=== PATIENT | female | born 1995 | race Hispanic/Latino ===

== ENCOUNTER 2017-05-09 09:17 | Emergency (ER) | payer OTHER ==
[2017-05-09 10:13] VITALS: RESP 16; BMI 18.3
[2017-05-09] MEDS ORDERED: Sodium Chloride 0.9% 1,000 ML IV STA (10:13)
--- NOTE | 2017-05-09 10:16 | ED PDOC ---
HPI: General Adult Time Seen by Provider: 05/09/17 09:49 Chief Complaint (Provider): Lower abd pain History Per: Patient History/Exam Limitations: no limitations Onset/Duration Of Symptoms: Days (Today) Have you had recent travel within the past 21 days to any of the following countries: [place], [place], [place] or [place]?: No Current Symptoms Are (Timing): Still Present Additional Complaint(s): Pt. with pain across lower abd pand lower back. No dysuria, vaginal dc, weakness, chest pain, dyspnea, diarrhea. Nausea, no vomit. No fever, cough. No new food or drinks. Has IUD and no period for 2 years. Past Medical History Reviewed: Nursing Documentation, Vital Signs Vital Signs: Last Vital Signs Temp 98.6 F 05/09/17 14:44 Pulse 83 05/09/17 14:44 Resp 16 05/09/17 14:44 BP 108/63 05/09/17 14:44 Pulse Ox 99 05/09/17 14:44 - Medical History PMH: No Chronic Diseases - Surgical History Surgical History: No Surg Hx - Family History Family History: States: Unknown Family Hx - Social History Current smoker - smoking cessation education provided: No Alcohol: None Drugs: Denies - Allergies Allergies/Adverse Reactions: Allergies Allergy/AdvReac Type Severity Reaction Status Date / Time esomeprazole [From Nexium] Allergy Verified 05/09/17 10:12 Review of Systems ROS Statement: Except As Marked, All Systems Reviewed And Found Negative Gastrointestinal: Positive for: Nausea, Abdominal Pain Musculoskeletal: Positive for: Back Pain Physical Exam - Reviewed Nursing Documentation Reviewed: Yes Vital Signs Reviewed: Yes - Physical Exam Appears: Positive for: Non-toxic, No Acute Distress Head Exam: Positive for: ATRAUMATIC, NORMAL INSPECTION, NORMOCEPHALIC Skin: Positive for: Normal Color, Warm, DRY Eye Exam: Positive for: EOMI, Normal appearance, PERRL ENT: Positive for: Normal ENT Inspection Neck: Positive for: Normal, Painless ROM Cardiovascular/Chest: Positive for: Regular Rate, Rhythm Respiratory: Positive for: CNT, Normal Breath Sounds Gastrointestinal/Abdominal: Positive for: Bowel Sounds, Soft, Tenderness ( across lower) Back: Positive for: Normal Inspection. Negative for: L CVA Tenderness, R CVA Tenderness Extremity: Positive for: Normal ROM. Negative for: Tenderness, Pedal Edema Neurologic/Psych: Positive for: Alert, Oriented - Laboratory Results Result Diagrams: 05/09/17 11:13 05/09/17 11:13 Interpretation Of Abn Labs: no acute Urine POC: Negative Urine dip results: Negative for: Leukocyte Esterase, Nitrate - ECG O2 Sat by Pulse Oximetry: 98 Pulse Ox Interpretation: Normal - CT Scan/US ct Other Rad Studies (CT/US): Read By Radiologist Other Rad Interpretation: large cyst us Other Rad Studies (CT/US): Read By Radiologist Other Rad Interpretation: Large 4.2 centimeter right ovarian hemorrhagic cyst. - Progress ED Course And Treament: 1334: Stable. AAOx3. US as pt. has ovarian cyst. 1526: Stable. Pain free. Tolerated PO. Fu with pcp. Disposition - Clinical Impression Clinical Impression: Abdominal pain, Hemorrhagic cyst - Patient ED Disposition Is Patient to be Admitted: No Counseled Patient/Family Regarding: Studies Performed, Diagnosis, Need For Followup - Disposition [facility]errals: [facility] Disposition: Routine/Home Disposition Time: 15:27 Condition: STABLE Additional Instructions: Return if not better in 3 days. Instructions: Acute Abdominal Pain (ED), Ovarian Cyst (ED) Forms: [employer] (Kazakh)
[2017-05-09] MEDS ORDERED: Iohexol 240 (50 ml) PO ONE (11:08)
[2017-05-09] MEDS ORDERED: Iohexol 240 (50 ml) ONE (11:12)
[2017-05-09 11:18] LABS: BASO % 0.6 % (0.0-2.0); EOS # 0.3 K/uL (0.0-0.7); EOS % 5.4 % (0.0-4.0); HEMATOCRIT 40.6 % (34.0-47.0); LYMPH # 1.5 K/uL (1.0-4.3); MEAN CELL VOLUME 92.7 fl (81.0-99.0); MEAN CORPUSCULAR HEMOGLOBIN 31.2 pg (27.0-31.0); MEAN CORPUSCULAR HGB CONC 33.7 g/dL (33.0-37.0); MEAN PLATELET VOLUME 8.5 fl (7.2-11.7); MONO # 0.3 K/uL (0.0-0.8); MONO % 6.3 % (0.0-10.0); NEUT # 3.2 K/uL (1.8-7.0); NEUT % 59.7 % (50.0-75.0); NRBC % 0.1 % (0.0-0.0); RED CELL DISTRIBUTION WIDTH 12.9 % (11.5-14.5); WHITE BLOOD COUNT 5.4 K/uL (4.8-10.8)
[2017-05-09 11:28] LABS: ALB/GLOB RATIO 1.4 (1.0-2.1); ALKALINE PHOSPHATASE 68 U/L (38-126); ALT/SGPT 25 U/L (9-52); AST/SGOT 19 U/L (14-36); BILIRUBIN,TOTAL 0.5 mg/dl (0.2-1.3); BLOOD UREA NITROGEN 13 mg/dl (7-17); CALCIUM 9.3 mg/dL (8.4-10.2); CARBON DIOXIDE 25 mmol/L (22-30); CHLORIDE 105 mmol/L (98-107); GFR AFRICAN-AMERICAN > 60; GLUCOSE,RANDOM 89 mg/dL (65-105); POTASSIUM 4.3 MMOL/L (3.6-5.0); SODIUM 141 mmol/l (132-148); TOTAL PROTEIN 7.9 G/DL (6.3-8.2)
[2017-05-09] MEDS ORDERED: Iohexol 300 100 ML IJ ONE (12:57)
[2017-05-09] MEDS ORDERED: Sodium Chloride 0.9% 50 ML IV ONE (12:58)
--- NOTE | 2017-05-09 13:35 | CT ---
PROCEDURE: CT Abdomen and Pelvis with contrast HISTORY: abd pain COMPARISON: None. TECHNIQUE: Contrast dose: 95 mL Omnipaque 300 Radiation dose: Total exam DLP = 267.7 mGy-cm. This CT exam was performed using one or more of the following dose reduction techniques: Automated exposure control, adjustment of the mA and/or kV according to patient size, and/or use of iterative reconstruction technique. FINDINGS: LOWER THORAX: Heart normal in size. Lung bases clear. No pleural or pericardial effusion. Peripheral right lower lobe 3 millimeter nodule (series 3, image 3). Peripheral right lower lobe 4 millimeter nodule (series 3, image 12). LIVER: Unremarkable. No gross lesion or ductal dilatation. GALLBLADDER AND BILE DUCTS: Unremarkable. PANCREAS: Unremarkable. No gross lesion or ductal dilatation. SPLEEN: Unremarkable. ADRENALS: Unremarkable. No mass. KIDNEYS AND URETERS: Unremarkable. No hydronephrosis. No solid mass. VASCULATURE: Unremarkable. No aortic aneurysm. BOWEL: Unremarkable. No obstruction. No gross mural thickening. APPENDIX: Normal appendix. PERITONEUM: Unremarkable. No free fluid. No free air. LYMPH NODES: Unremarkable. No enlarged lymph nodes. BLADDER: Unremarkable. REPRODUCTIVE: Intrauterine device. Large right ovarian cyst measuring 4.2 x 2.9 centimeter (series 3, image 137). Dominant left ovarian follicle measuring 2.2 x 1.7 centimeter (series 3, image 133). Free fluid in the pelvis. BONES: No acute fracture. OTHER FINDINGS: None. IMPRESSION: Large right ovarian cyst measuring up to 4.2 cm with surrounding free fluid. Pelvic ultrasound can be obtained for further evaluation as clinically warranted. Findings conveyed to Dr. Che by Dr. Ramachandran at 1:30 p.m. on 05/09/2017.
[2017-05-09 14:45] VITALS: BP 108/63; PULSE 83; TEMP 98.6
--- NOTE | 2017-05-09 14:49 | US ---
HISTORY: pain COMPARISON: Correlation is made to CT scan of the abdomen and pelvis performed earlier the same day. TECHNIQUE: Grayscale, color Doppler and spectral doppler evaluation of the pelvis, performed transvaginally. FINDINGS: UTERUS: Measures 7.4 x 2.8 x 3.6 cm. Anteverted. Normal in size and appearance. No fibroid or other mass lesion seen. ENDOMETRIUM: Measures 3 mm in diameter. Intrauterine device within the endometrial canal. CERVIX: No cervical abnormality identified. RIGHT OVARY: Measures 5.4 x 3.7 x 6.2 cm and contains 4.2 x 2.7 x 4.1 centimeter hemorrhagic cyst. Normal flow. LEFT OVARY: Measures 2.7 x 1.4 x 2.0 cm. No solid mass. Normal flow. FREE FLUID: Prominent amount of free fluid noted. OTHER FINDINGS: None. IMPRESSION: Large 4.2 centimeter right ovarian hemorrhagic cyst. Prominent amount of free pelvic fluid may be physiologic or represent partial cyst rupture. Ultrasound follow-up can be obtained in 6-8 weeks to assess for stability/ resolution. Normal color Doppler flow to both ovaries.
[2017-05-09 15:25] VITALS: O2SAT 98
== END 2017-05-09 15:39 | disposition home or self-care (01) ==
LOC: H.ER 09:17
DX: N83.201 Unspecified ovarian cyst, right side (principal)
CPT/HCPCS: 74177; 76830; 80053; 81025; 85025; 96374; 99283; J1885; J2405; J7040; Q9966; Q9967